=== PATIENT | female | born 1980 | race Hispanic/Latino ===

== ENCOUNTER 2018-08-28 20:00 | Emergency (ER) | payer OTHER ==
--- NOTE | 2018-08-28 21:42 | ER ---
Nurse's Notes [facility] Name: Kait Kendrick Age: 37 yrs Sex: Female : 1980 Arrival Date: 08/28/2018 Time: 20:02 Bed Treatment Private MD: Diagnosis: Acute upper respiratory infection, unspecified Presentation: 08/28 20:16 Presenting complaint: Patient states: fever, cough \T\ congestion x 3 days. Reports she aa1 is also 19 weeks . Transition of care: patient was not received from another setting of care. Onset of symptoms was August 26, 2018. Risk Assessment: Do you want to hurt yourself or someone else? Patient reports no desire to harm self or others. Initial Sepsis Screen: Does the patient meet any 2 criteria? No. Patient's initial sepsis screen is negative. Does the patient have a suspected source of infection? No. Patient's initial sepsis screen is negative. Care prior to arrival: None. 20:16 Method Of Arrival: Ambulatory aa1 20:16 Acuity: GIORGIO 4 aa1 Triage Assessment: 20:17 General: Appears in no apparent distress. comfortable, Behavior is calm, cooperative, aa1 appropriate for age. 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 - Social history:: Smoking status: Patient/guardian denies using tobacco. - Ebola Screening: : Patient denies exposure to infectious person Patient denies travel to an Ebola-affected area in the 21 days before illness onset. Screenin:50 Abuse screen: Denies threats or abuse. Denies injuries from another. Nutritional ao screening: No deficits noted. Tuberculosis screening: No symptoms or risk factors identified. Fall Risk None identified. Assessment: 20:48 General: Appears in no apparent distress. comfortable, Behavior is calm, cooperative, ao appropriate for age. Pain: Denies pain. Neuro: Level of Consciousness is awake, alert, obeys commands, Oriented to person, place, time, situation, Appropriate for age Moves all extremities. Full function Speech is normal, Facial symmetry appears normal. Cardiovascular: Capillary refill < 3 seconds Patient's skin is warm and dry. Respiratory: Airway is patent Respiratory effort is even, unlabored, Respiratory pattern is regular, symmetrical. GI: Abdomen is non-distended. : No signs and/or symptoms were reported regarding the genitourinary system. EENT: No signs and/or symptoms were reported regarding the EENT system. Derm: Skin is intact, Skin temperature is warm. Musculoskeletal: Circulation, motion, and sensation intact. Range of motion: intact in all extremities. 21:27 Reassessment: Patient appears in no apparent distress at this time. No changes from ao previously documented assessment. Patient and/or family updated on plan of care and expected duration. Pain level reassessed. Flue and strep negative waiting on Dispo orders. 21:55 Reassessment: Dc home. Pt agree with POC and to fallow up. ao Vital Signs: 20:17 BP 131 / 89; Pulse 72; Resp 16; Temp 98.1; Pulse Ox 99% on R/A; Weight 70.31 kg; Height aa1 5 ft. 3 in. (160.02 cm); Pain 0/10; 21:56 Pulse 89; Resp 20; Pulse Ox 99% on R/A; ao 20:17 Body Mass Index 27.46 (70.31 kg, 160.02 cm) aa1 ED Course: 20:02 Patient arrived in ED. mr 20:17 Triage completed. aa1 20:17 Arm band placed on right wrist. aa1 20:24 Alejandro Davies PA is PHCP. jr8 20:24 El Herring MD is Attending Physician. jr8 20:48 Phani Sparks, FAUSTO is Primary Nurse. ao 20:50 Patient has correct armband on for positive identification. Pulse ox on. NIBP on. ao 21:54 No provider procedures requiring assistance completed. Patient did not have IV access ao during this emergency room visit. Administered Medications: No medications were administered Outcome: 21:41 Discharge ordered by . jr8 21:55 Discharged to home ambulatory. ao 21:55 Condition: stable 21:55 Discharge instructions given to patient, Instructed on discharge instructions, follow up and referral plans. Demonstrated understanding of instructions, follow-up care, medications, Prescriptions given X 1. 21:56 Patient left the ED. ao Signatures: Autenrieth, Deena, RN RN aa1 Nhi Kaur mr Alejandro Davies PA PA jr8 Phani Sparks RN RN ao
--- NOTE | 2018-08-28 21:42 | EDPHYS ---
Physician Documentation [facility] Name: Kait Kendrick Age: 37 yrs Sex: Female : 1980 Arrival Date: 08/28/2018 Time: 20:02 Bed Treatment Private MD: ED Physician El Herring HPI: 08/28 21:00 This 37 yrs old Female presents to ER via Ambulatory with complaints of Flu jr8 Symptoms, 19 wks . 21:00 Onset: The symptoms/episode began/occurred 3 day(s) ago. Associated signs and symptoms: jr8 Pertinent positives: congestion, cough, sore throat, Pertinent negatives: abdominal pain, chest pain, shortness of breath, vomiting. The patient has not experienced similar symptoms in the past. The patient has not recently seen a physician. Patient reports productive cough, congestion, sore throat and subjective fever for 2-3 days. States at home she has been using Claritin and Mucinex without much improvement. . 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 - Social history:: Smoking status: Patient/guardian denies using tobacco. - Ebola Screening: : Patient denies exposure to infectious person Patient denies travel to an Ebola-affected area in the 21 days before illness onset. ROS: 21:00 Cardiovascular: Negative for chest pain, palpitations, and edema, Abdomen/GI: Negative jr8 for abdominal pain, nausea, vomiting, diarrhea, and constipation, MS/Extremity: Negative for injury and deformity, Skin: Negative for injury, rash, and discoloration, Neuro: Negative for headache, weakness, numbness, tingling, and seizure. 21:00 Constitutional: Positive for chills, fever. 21:00 ENT: Positive for rhinorrhea, sinus congestion, sore throat, Negative for sinus pain. 21:00 Cardiovascular: 21:00 Respiratory: Positive for cough, with green sputum, Negative for shortness of breath, wheezing. Exam: 21:00 Constitutional: This is a well developed, well nourished patient who is awake, alert, jr8 and in no acute distress. ENT: Nares patent. No nasal discharge, no septal abnormalities noted. Tympanic membranes are normal and external auditory canals are clear. Oropharynx with no redness, swelling, or masses, exudates, or evidence of obstruction, uvula midline. Mucous membranes moist. Cardiovascular: Regular rate and rhythm with a normal S1 and S2. No gallops, murmurs, or rubs. Normal PMI, no JVD. No pulse deficits. Respiratory: Lungs have equal breath sounds bilaterally, clear to auscultation and percussion. No rales, rhonchi or wheezes noted. No increased work of breathing, no retractions or nasal flaring. Abdomen/GI: Soft, non-tender, with normal bowel sounds. No distension or tympany. No guarding or rebound. No evidence of tenderness throughout. Skin: Warm, dry with normal turgor. Normal color with no rashes, no lesions, and no evidence of cellulitis. MS/ Extremity: Pulses equal, no cyanosis. Neurovascular intact. Full, normal range of motion. Vital Signs: 20:17 BP 131 / 89; Pulse 72; Resp 16; Temp 98.1; Pulse Ox 99% on R/A; Weight 70.31 kg; Height aa1 5 ft. 3 in. (160.02 cm); Pain 0/10; 21:56 Pulse 89; Resp 20; Pulse Ox 99% on R/A; ao 20:17 Body Mass Index 27.46 (70.31 kg, 160.02 cm) aa1 MDM: 20:24 Patient medically screened. jr8 21:00 Differential Diagnosis URI. Data reviewed: vital signs, nurses notes, lab test jr8 result(s), Flu: negative Strep (-), and as a result, I will discharge patient. Counseling: I had a detailed discussion with the patient and/or guardian regarding: the historical points, exam findings, and any diagnostic results supporting the discharge/admit diagnosis, lab results, the need for outpatient follow up, a family practitioner, to return to the emergency department if symptoms worsen or persist or if there are any questions or concerns that arise at home. ED course: Discussed results with patient. Patient encouraged to use Flonase at home on top of OTC routine. Patient verbalized understanding. . 08/28 20:25 Order name: Influenza Screen (a \T\ B); Complete Time: 21:32 jr8 08/28 20:25 Order name: Strep; Complete Time: 21:32 jr8 08/28 21:33 Order name: Throat Culture EDMS Administered Medications: No medications were administered Disposition: 08/29 00:41 Co-signature as Attending Physician, El Herring MD. pkl Disposition: 08/28/18 21:41 Discharged to Home. Impression: Acute upper respiratory infection, unspecified. - Condition is Stable. - Discharge Instructions: Upper Respiratory Infection, Adult, Viral Respiratory Infection, [id number]-[id number]. - Prescriptions for Amoxicillin 875 mg Oral Tablet - take 1 tablet by ORAL route every 12 hours for 10 days; 20 tablet. - Medication Reconciliation Form, Thank You Letter, Antibiotic Education, Prescription Opioid Use form. - Follow up: Private Physician; When: 2 - 3 days; Reason: Recheck today's complaints, Continuance of care, Re-evaluation by your physician. - Problem is new. - Symptoms have improved. Signatures: Dispatcher [employer] EDMS Deena Peterson RN RN aa1 El Herring MD MD pkl Alejandro Davies PA PA jr8 Phani Sparks RN RN ao Corrections: (The following items were deleted from the chart) 08/28 21:56 21:41 08/28/2018 21:41 Discharged to Home. Impression: Acute upper respiratory ao infection, unspecified. Condition is Stable. Forms are Medication Reconciliation Form, Thank You Letter, Antibiotic Education, Prescription Opioid Use. Follow up: Private Physician; When: 2 - 3 days; Reason: Recheck today's complaints, Continuance of care, Re-evaluation by your physician. Problem is new. Symptoms have improved. jr8
== END 2018-08-28 21:56 | disposition home or self-care (01) ==
LOC: ER 20:00
DX: O26.892 Other specified pregnancy related conditions, second trimester (principal); J06.9 Acute upper respiratory infection, unspecified; Z3A.19 19 weeks gestation of pregnancy
CPT/HCPCS: 87070; 87081; 87804; 99283

== ENCOUNTER 2018-09-14 16:51 | Emergency (ER) | payer SELFPAY ==
--- NOTE | 2018-09-14 18:54 | EDPHYS ---
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 - Social history:: Smoking status: . - Ebola Screening: : Patient denies travel to an Ebola-affected area in the 21 days before illness onset. Vital Signs: 17:03 BP 128 / 70; Pulse 74; Resp 17; Temp 98.1(TE); Pulse Ox 100% on R/A; Weight 71.21 kg tw2 (R); Height 5 ft. 3 in. (160.02 cm) (R); Pain 6/10; 17:03 Body Mass Index 27.81 (71.21 kg, 160.02 cm) tw2 MDM: 18:51 Patient medically screened. pm1 18:52 ED course: Patient is not present in the room. The patient and family left according to pm1 the nurse. Administered Medications: No medications were administered Disposition: 09/15 09:02 Co-signature as Attending Physician, Beny Burton MD I agree with the assessment and kdr plan of care. Disposition: 09/14/18 18:53 Patient left the facility before being seen by provider. Preliminary diagnosis is Dizziness and giddiness. - Patient left due to unknown. - Condition is Undetermined. - Problem is new. - Symptoms are unchanged. Signatures: Arleen Castillo, RN RN Beny Quiñonez MD MD kdr Marinas, Patrick, NP WELL SERVICING RIG OPERATOR pm1 Eugenie Holley RN RN tw2 Corrections: (The following items were deleted from the chart) 09/14 19:06 18:53 09/14/2018 18:53 Patient left the facility before being seen by provider. sv Preliminary diagnosis is Dizziness and giddiness. Reason stated they are leaving due to unknown. Condition is Undetermined. Problem is new. Symptoms are unchanged. pm1
--- NOTE | 2018-09-14 18:54 | ER ---
Nurse's Notes [facility] Name: Kait Kendrick Age: 37 yrs Sex: Female : 1980 Arrival Date: 09/14/2018 Time: 16:54 Bed 5 Private MD: Diagnosis: Dizziness and giddiness Presentation: 09/14 17:01 Presenting complaint: Patient states: after work well during work i feel dizzy and it tw2 comes and goes, i have vertigo and i have had it before, i am 22 weeks and also i have a headache. Transition of care: patient was not received from another setting of care. Onset of symptoms was September 14, 2018. Risk Assessment: Do you want to hurt yourself or someone else? Patient reports no desire to harm self or others. Initial Sepsis Screen: Does the patient meet any 2 criteria? No. Patient's initial sepsis screen is negative. Does the patient have a suspected source of infection? No. Patient's initial sepsis screen is negative. Care prior to arrival: None. 17:01 Method Of Arrival: Ambulatory tw2 17:01 Acuity: GIORGIO 3 tw2 Triage Assessment: 17:03 General: Appears in no apparent distress. Behavior is calm, cooperative, appropriate tw2 for age. Pain: Complains of pain in forehead, left holiness and right holiness. Neuro: Reports dizziness, headache. 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 - Social history:: Smoking status: . - Ebola Screening: : Patient denies travel to an Ebola-affected area in the 21 days before illness onset. Assessment: 18:36 Reassessment: Pt not in the room. sv 19:06 Reassessment: Pt not in the room. sv Vital Signs: 17:03 BP 128 / 70; Pulse 74; Resp 17; Temp 98.1(TE); Pulse Ox 100% on R/A; Weight 71.21 kg tw2 (R); Height 5 ft. 3 in. (160.02 cm) (R); Pain 6/10; 17:03 Body Mass Index 27.81 (71.21 kg, 160.02 cm) tw2 ED Course: 16:54 Patient arrived in ED. rg4 17:02 Triage completed. tw2 17:02 Arm band placed on. tw2 18:35 Arleen Castillo RN is Primary Nurse. sv 18:51 Piotr Zapata NP is PHCP. pm1 18:51 Beny Burton MD is Attending Physician. pm1 Administered Medications: No medications were administered Outcome: 19:06 Eloped from patient exam room, before seeing physician Time discovered patient gone: sv September 14, 2018 at 18:36 19:06 unknown 19:06 Patient left the ED. Signatures: Arleen Castillo RN RN Piotr Zapata NP STEEL INSPECTOR pm1 Eugenie Holley RN RN tw2 Annemarie Sorenson rg4 Corrections: (The following items were deleted from the chart) 17:02 17:01 Presenting complaint: Patient states: after work well during work i feel dizzy tw2 and it comes and goes, i have vertigo and i have had it before, i am 22 weeks tw2
== END 2018-09-14 19:06 | disposition left against medical advice (07) ==
LOC: ER 16:51
DX: Z53.21 Procedure and treatment not carried out due to patient leaving prior to being seen by health care provider (principal)
CPT/HCPCS: 99281

== ENCOUNTER 2018-09-23 21:02 | Emergency (ER) | payer SELFPAY ==
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
== END 2018-09-24 00:05 | disposition home or self-care (01) ==
LOC: ER 21:02
DX: O26.892 Other specified pregnancy related conditions, second trimester (principal); S13.9XXA Sprain of joints and ligaments of unspecified parts of neck, initial encounter; V49.40XA Driver injured in collision with unspecified motor vehicles in traffic accident, initial encounter; Z3A.00 Weeks of gestation of pregnancy not specified; Z79.82 Long term (current) use of aspirin
CPT/HCPCS: 72125; 86900; 86901; 99284